=== PATIENT | female | born 1990 | race Caucasian/White ===

== ENCOUNTER 2022-07-06 16:02 | Outpatient (CLI) | payer OTHER, SELFPAY ==
[2022-07-06 23:40] LABS: Ferritin* 66.6 ng/mL (6.24-137.0)
== END 2022-07-06 16:03 | disposition home or self-care (01) ==
PROVIDERS: PCP Physician Assistant Medical; Visit Provider Physician Assistant Medical
DX: L65.9 Nonscarring hair loss, unspecified (principal)
CPT/HCPCS: 82728; 84443

== ENCOUNTER 2022-11-25 08:26 | Outpatient (CLI) | payer OTHER, SELFPAY ==
[2022-11-25 15:59] LABS: Albumin* 4.7 g/dL (3.3-5.0); Chloride* 104 mmol/L (96-114)
[2022-11-25 16:00] LABS: Sodium* 139 mmol/L (135-149)
[2022-11-25 16:02] LABS: Alkaline Phosphatase* 59 U/L (40-150); Aspartate Amino Transferase* 24 U/L (12-35); Blood Urea Nitrogen* 15 mg/dL (5-24); Carbon Dioxide* 26 mmol/L (20-32); Cholesterol* 201 mg/dL (90-199); Creatinine* 0.6 mg/dL (0.5-1.5); Estimated Glomerular Filt Rate 121 ml/min; Glucose* 95 mg/dL (60-115); Total Protein* 7.7 g/dL (6.0-8.3)
[2022-11-25 16:03] LABS: Alanine Aminotransferase* 21 U/L (4-35); Calcium* 9.5 mg/dL (8.4-10.6); HDL Cholesterol* 75 mg/dL (>=50); LDL Cholesterol Calculated 112 mg/dL (<100); Triglycerides* 72 mg/dL (40-149)
== END 2022-11-25 08:27 | disposition home or self-care (01) ==
PROVIDERS: PCP Physician Assistant Medical; Visit Provider Physician Assistant Medical
DX: Z00.00 Encounter for general adult medical examination without abnormal findings (principal); F41.9 Anxiety disorder, unspecified; Z13.6 Encounter for screening for cardiovascular disorders
CPT/HCPCS: 80053; 80061

== ENCOUNTER 2022-11-28 10:35 | Emergency (ER) | payer OTHER, SELFPAY ==
[2022-11-28 11:16] VITALS: BP 108/72; PULSE 85; RESP 18; TEMP 36.2; O2SAT 98; BMI 31.4
--- NOTE | 2022-11-28 14:13 | CRLHL7_ITS ---
For Patients: As a result of the Century Cures Act, medical imaging exams and procedure reports are released immediately into your electronic medical record. You may view this report before your referring provider. If you have questions, please contact your health care provider. HISTORY: Right pelvis/inguinal pain. TECHNIQUE: CT abdomen and pelvis without contrast. COMPARISON: CT abdomen pelvis 08/11/2020. FINDINGS: Abdomen: Liver, pancreas, spleen, and left adrenal gland are unremarkable. Right adrenal 2 cm right adrenal nodule with average density of -11 Hounsfield units consistent with a lipid rich adenoma. No urinary tract calculi. No hydronephrosis. No dilated bowel. Prominent diameter appendix without periappendiceal inflammatory change, unchanged. No free fluid. No lymphadenopathy. Abdominal aorta is not dilated. Pelvis: No lymphadenopathy. No inguinal or femoral hernia. Musculoskeletal: Unremarkable. Lower chest: Unremarkable. IMPRESSION: No acute abnormality in the abdomen or pelvis. Please note that all CT scans at this facility use dose modulation, iterative reconstruction, and/or weight-based dosing when appropriate to reduce radiation dose to as low as reasonably achievable. Dictated by Darnell Glass MD @ 11/28/2022 3:13:02 PM (Electronically Signed)
--- NOTE | 2022-11-28 14:15 | ED_ITS ---
HPI - Abdominal Pain General Chief Complaint: Abdominal Pain Stated Complaint: Pain from hernia, can't pee Time Seen by Provider: 11/28/22 14:03 History of Present Illness HPI narrative: 32-year-old woman presenting to the emergency department with complaint of fairly abrupt onset of right lower abdominal pain. Rather severe sharp. She is worried I think that might be an incarcerated hernia. She has had 2 C sections does have a history of ovarian cysts. The latter she says usually though do not stop hurting at rest. Was apparently coughing last night in developed this pain. If she is not moving or lying flat it is okay. Any ambulation inserting the ride over here was much worse. No fever. No vomiting. Might be bordering on constipation. Has been actually trying to urinate and have bowel movement and has been having difficulty. She did just manages small amount of urine out. Later on further questioning, notes that has been having dysuria for quite some time. She also notes a history of recurrent urinary tract infections. Related Data Previous Rx's Medication Instructions Recorded escitalopram oxalate 10 mg tablet 10 mg PO DAILY #90 tabs 11/25/22 lisdexamfetamine 50 mg capsule 50 mg PO QDAY #30 caps 11/25/22 (Vyvanse) metformin 500 mg tablet,extended 1,000 mg PO QDAY #60 tabs 11/25/22 release 24 hr Allergies Allergy/AdvReac Type Severity Reaction Status Date / Time lamotrigine Allergy Unknown Rash Verified 12/04/22 08:48 Review of Systems Status of ROS Reports: 6 or more systems reviewed and unremarkable except as noted in History and below [facility] Medical History (Updated 11/28/22 @ 15:40 by Rafiq Hanna MD) History of abnormal cervical Papanicolaou smear (2007) History of bronchitis (2014) History of recurrent urinary tract infection (2010) History of sinusitis (2014) Surgical History (Updated 11/18/22 @ 17:00 by Francheska Urena) History of colposcopy (2007) History of third molar tooth extraction Status post primary low transverse section Status post repeat low transverse section Social History Smoking Status: Never smoker How often do you have a drink containing alcohol: never How often do you have six or more drinks on one occasion: Never AUDIT-C Alcohol total score: 0 Non-prescribed substance use: denies use Little interest or pleasure in doing things: not at all Feeling down, depressed, or hopeless: not at all service: No Exam Narrative: Exam Narrative: Pleasant. Clearly quite uncomfortable. Not tachypneic but breathing mildly labored. Heart in regular rate and rhythm. Extremities well perfused without edema. Abdomen is exquisitely tender causing her to cry to palpate in the right inguinal low right pelvis/adnexal area. I do not appreciate wall defect. But frankly it is too tender really to tell. Soft. Pain is not isolated to hip flexors/insertion. Const: Vital Signs, click to edit/add: Vital Signs - 24 hr 11/28/22 11:16 Temperature 97.2 F L Pulse Rate [Right Pulse Oximeter] 85 Respiratory Rate 18 Blood Pressure [Ri ght Upper Arm] 108/72 Pulse Oximetry 98 Oxygen Delivery Me thod Room Air Documenting provider has reviewed patient's vital signs: yes Course Vital Signs Vital signs: Initial Vital Signs Temperature 97.2 F L 11/28/22 11:16 Temperature Source Temporal Artery Scan 11/28/22 11:16 Pulse Rate 85 11/28/22 11:16 Respiratory Rate 18 11/28/22 11:16 Blood Pressure 108/72 11/28/22 11:16 Blood Pressure Mean 84 11/28/22 11:16 Blood Pressure Position Sitting 11/28/22 11:16 Pulse Oximetry 98 11/28/22 11:16 Oxygen Delivery Method 11/28/22 11:16 Vital Signs Temperature 97.2 F L 11/28/22 11:16 Pulse Rate 85 11/28/22 11:16 Respiratory Rate 18 11/28/22 11:16 Blood Pressure 108/72 11/28/22 11:16 Pulse Oximetry 98 11/28/22 11:16 Oxygen Delivery Method 11/28/22 11:16 Temperature 97.2 F L 11/28/22 11:16 Pulse Rate 85 11/28/22 11:16 Respiratory Rate 18 11/28/22 11:16 Blood Pressure 108/72 11/28/22 11:16 Pulse Oximetry 98 11/28/22 11:16 Oxygen Delivery Method 11/28/22 11:16 MDM - Abdominal Pain MDM Narrative Medical decision making narrative: This may certainly be musculoskeletal wall tenderness but really hard to assess. I think given degree of discomfort we will have to image for further clarification. This also would answer her primary concern. Urinalysis as well as urine testing. Shot of Toradol as a start. Preferring not have IV ketorolac as above. CT imaging of the abdomen pelvis reviewed by me does not reveal any particular abnormality. Radiology also noting no acute abnormality. No hydronephrosis no nephrolithiasis. No abdominal wall defect/hernia. Perhaps is reticular/regional from what appears to be some degree of cystitis? Lab Data Attestation: I reviewed the patient's lab results. Labs: Lab Results 11/28/22 Range/Units 14:17 Urine Color Yellow (Yellow) Urine Appearance Clear (Clear) Urine pH 5.5 (5.0-8.5) Ur Specific [place] 1.020 (1.000-1.030) Urine Protein Negative (Negative) Urine Glucose (UA) Negative (Negative) Urine Ketones Negative (Negative) Urine Blood Trace-intact A (Negative) Urine Nitrite Negative (Negative) Urine Bilirubin Negative (Negative) Urine Urobilinogen 0.2 (0.2-1.0) Ur Leukocyte Esterase Negative (Negative) Urine RBC 5-10 A (0-2) Urine WBC 0-2 (0-5) Ur Squamous Epith Cells Few (None-Few) Urine Bacteria None (None) Discharge Plan Discharge Clinical Impression: Right inguinal pain, Cystitis Patient Disposition: Home w/ Parent or Adult Condition: Improved Additional Instructions: Focus on unsweetened/unsugared hydration aka water. Report fever, repeated vomiting, uncontrolled pain. Can take up to 800 mg of ibuprofen per dose or up to 1000 mg of acetaminophen per dose. Alternative to the ibuprofen might be up to 500 mg of naproxen 2 times daily. A urine culture will be pending here. Cephalexin and phenazopyridine from [facility]. If you think this lidocaine patches helpful, this can indicate more of a musculoskeletal problem and you can get lidocaine patches [id number]. Please also see handout on abdominal wall strain. Prescriptions: No Action metformin 500 mg tablet extended release 24 hr 1,000 mg PO QDAY Qty: 60 1RF escitalopram oxalate 10 mg tablet 10 mg PO DAILY Qty: 90 3RF Vyvanse 50 mg capsule 50 mg PO QDAY Qty: 30 0RF Follow Up/Referrals: Margarita Melo PA-C [Primary Care Provider] - Stand Alone Forms: ulike Info Instructions
[2022-11-28] MEDS: KETOROLAC 60 MG/2 ML inj IM (14:32)
[2022-11-28 14:45] LABS: Appearance Urine Clear (Clear); Bilirubin Urine Negative (Negative); Blood Urine Trace-intact (Negative); Color Urine Yellow (Yellow); Glucose Urine Negative (Negative); Ketones Urine Negative (Negative); Leukocyte Esterase Urine Negative (Negative); Nitrite Urine Negative (Negative); Protein Urine Negative (Negative); Urobilinogen Urine 0.2 (0.2-1.0); pH Urine 5.5 (5.0-8.5)
[2022-11-28 14:54] LABS: Squamous Epithelial Cell Urine Few (None-Few); WBC Urine 0-2 (0-5)
== END 2022-11-28 15:47 | disposition home or self-care (01) ==
PROVIDERS: Emergency Provider Family Medicine; PCP Physician Assistant Medical
DX: R10.31 Right lower quadrant pain (principal)
CPT/HCPCS: 74176; 81001; 96372; 99283; 99284; J1885

== ENCOUNTER 2023-03-26 08:04 | Outpatient (CLI) | payer OTHER, SELFPAY ==
--- NOTE | 2023-03-26 08:15 | CRLHL7_ITS ---
For Patients: As a result of the Century Cures Act, medical imaging exams and procedure reports are released immediately into your electronic medical record. You may view this report before your referring provider. If you have questions, please contact your health care provider. INDICATION: Ovarian mass seen on ultrasound. COMPARISON: Ultrasound dated 03/04/2023 and 11/28/2022. TECHNIQUE: MRI of the pelvis without and with contrast. 15 cc of Dotarem administered intravenously. FINDINGS: There is a right ovarian cyst measuring 2.8 x 2.4 cm. The left ovary looks unremarkable. A scar along the lower uterine segment is likely a scar. The urinary bladder appears unremarkable. Trivial free fluid in the pelvis. IMPRESSION: A right ovarian cyst is seen. Most likely the previously seen lesion was a hemorrhagic cyst. No hemorrhage within the cyst remaining at this point. Alternatively, this is a new follicular cyst. Dictated by Anjel Antunez MD @ 03/29/2023 7:17:13 AM (Electronically Signed)
== END 2023-03-26 08:05 | disposition home or self-care (01) ==
LOC: MRI 08:05
PROVIDERS: PCP Physician Assistant Medical; Visit Provider Physician Assistant Medical
DX: N83.201 Unspecified ovarian cyst, right side (principal)
CPT/HCPCS: 72197; A9575

== ENCOUNTER 2024-02-24 15:35 | Outpatient (CLI) | payer OTHER, SELFPAY ==
--- OUTSIDE RECORDS SUMMARY | 2024-02-24 15:38 | XMS_ITS | Clinical Summary ---
Author Organization [facility] Address [address] [place] [address] Care Team Providers Care Presser All Around Name Role Phone Roberta Neves APRN, INFECTION PREVENTIONIST Primary Care Provider Source Comments You are receiving this document as you are listed as the primary care provider,follow-up provider, or the patient has been referred to you for consultation.This is in compliance with the Medicare and[facility] EHR Incentive Program,which states Providers who transition their patient to another setting of careor provider of care or refers their patient to another provider of care shouldprovide summary care record for each transition of care or referral. [employer] [employer] Allergies No known active allergies Medications Medication Sig Dispensed Refills Start Date End Date Status Etonogestrel-Ethinyl Estradiol (NUVARING) 0.12-0.015 MG/24HR vaginal ringIndications:spott ing with OCPs Insert vaginally. Leave in for 3 weeks, then remove for one week, then repeat. Indications: spotting with OCPs 3 Each 4 03/31/2011 Active Additional Information Patient not taking.Reported on 11/18/2021 Etonogestrel-Ethinyl Estradiol (NUVARING) 0.12-0.015 MG/24HR vaginal ringIndications:Other general counseling and advice for contraceptive management Leave in for 3 weeks, then remove for one week, then repeat. 3 Each 4 05/30/2012 Active Additional Information Patient not taking.Reported on 11/18/2021 Etonogestrel-Ethinyl Estradiol (NUVARING VA) Place vaginally. 06/30/2011 Active guaiFENesin-codeine (ROBITUSSINAC) 100-10 MG/5ML solution Take 10 mLs by mouth every 4 hours as needed for Cough. 120 mL 0 11/30/2011 Active Additional Information Patient not taking.Reported on 11/18/2021 sodium fluoride (PREVIDENT) 1.1 % cream [place] 2x/day. Do not eat or drink for 30 minutes after. 51 g 6 02/06/2021 Active Additional Information Patient not taking.Reported on 11/18/2021 Active Problems Problem Noted Date Diagnosed Date Cervical high risk HPV (human papillomavirus) te st positive 07/17/2010 Papanicolaou smear of cervix with atypical squamous cells of undetermined significance (ASC-US) 07/17/2010 Overview: ASCUS on Pap smear Immunizations Name Administration Dates Next Due 4vHPV (Gardasil) 11/04/2010,06/24/2010, 0 Pfizer Monovalent 12+ Purple Top 10/14/2020,09/04 TB Skin Test (PPD) 11/19/2010,11/04/2010, 010 Td 10/15/2003 Tdap 11/04/2010 Family History Medical History Relation Name Comments Cancer, Breast Mother diagnosed at 45- in remission Cancer, Ovary Maternal Grandmother Relation Name Status Comments Father Alive Mother Alive hx breast cance r Brother Alive Maternal Grandmother Social History Tobacco Use Types Packs/Day Years Used Date Smoking Tobacco: Never Smokeless Tobacco: Never Alcohol Use Standard Drinks/Week Comments Not Currently 0 (1 standard drink = 0.6 oz pur e alcohol) Weekends about 8 drinks Sex and Gender Information Value Date Recorded Sex Assigned at Not on file Gender Identity Not on file Sexual Orientation Not on file Last Filed Vital Signs Vital Sign Reading Time Taken Comments Blood Pressure 110/62 05/30/2012 2:37 PM CDT Pulse 84 02/06/2021 4:06 PM CDT Temperature 36.8 ??C (98.2 ??F) 11/30/2011 2:08 PM CS T Respiratory Rate 20 11/30/2011 2:08 PM STRIPPER AND PRINTER Oxygen Saturation 98% 11/30/2011 2:08 PM STRIPPER AND PRINTER Inhaled Oxygen Concentration - - Weight 68.5 kg (151 lb) 05/30/2012 2:37 PM CDT Height 162.6 cm (5' 4) 05/30/2012 2:37 PM CDT Body Mass Index 25.92 05/30/2012 2:37 PM CDT Plan of Treatment Health Maintenance Due Date Last Done Comments Hep C Screening (Preventive Services) 1988 HIV Screening (Preventive Services) 2004 HepB (1) 2007 Cervical Cancer Screening Due 05/31/2012 05/30/2012, 02/02/2011, 08/05/2010, Additional history exists Adult Preventive Visit 05/30/2014 05/30/2012, 2009 COVID-19 Vaccine ( season) 2023 10/14/2020, 09/23/2020 Influenza (Season Ended) 2024 020, 08/02/2019, 07/04/2018, Additional history exists DTaP/Tdap/Td (5 - Tdap) 02/19/2030 02/20/20 20, 06/28/2017, 11/04/2010, Additional history exists Zoster/Shingles (1 of 2) 2038 HPV Vaccine Completed 11/04/2010, 06/05, 04/29/2010 HepA Aged Out No longer eligi ble based on patient's age to complete this topic Hib Aged Out No longer eligi ble based on patient's age to complete this topic IPV (Polio) Aged Out No longer eligi ble based on patient's age to complete this topic MCV4 Aged Out No longer eligi ble based on patient's age to complete this topic Pneumococcal Aged Out No longer eligi ble based on patient's age to complete this topic Procedures Procedure Name Priority Date/Time Associated Diagnosis Comments PAP TEST, ROUTINE Routine 05/30/2012 12: 00 AM CDT Screening for malignant neoplasm of the cervix from Last 3 Months or Most Recently Relevant to Health Maintenance Results * PAP TEST, ROUTINE (05/30/2012 12:00 AM CDT) Cytology, Pap (NOTE) Cash Applications Specialist Cytology Report Patient Name: VERONICA ZUNIGA Valdo Taken: 05/30/2012 Received: 05/31/2012 Reported: 06/17/2012 Physician(s): KAYLEEN VALENTINO ([id number]) ?Source of Specimen Liquid routine Pap, cervical/endocer vical: ?Specimen Adequacy ?Satisfactory for evaluation. ??Endocervical component present. ? Final Cytologic Interpretation/R esult EPITHELIAL CELL ABNORMALITIES Atypical squamous cells, undetermined significance (ASC-US). Human Papilloma Virus Ancillary Testing Specimen sent for HPV testing as requested by provider; separate report to follow Electronicall y Signed Out By ? Tonya Carmona MD ??([id number] ) LIZETH Reece (ASCP) ? Pap Smear History Date of Last Menstrual Period: 05/02/2012 ?? Microscopic Description Microscopic examination is performed. [facility] Department of Pathology [address] [place] [address] ??[id number] [facility] 05/30/2012 05/31/2012 12: 17 PM CDT Kayleen Valentino MANAGER LINE, INFECTION PREVENTIONIST LAB_1 Performing Organization Address City/State/[facility] Co de Phone Number [employer] [address] [phone] from Last 3 Months or Most Recently Relevant to Health Maintenance Care Teams Presser All Around Relationship Specialty Start Date End Date Roberta Neves APRN, INFECTION PREVENTIONIST [address] [place] [address] PCP - General Family Practice 05/20/12
--- OUTSIDE RECORDS SUMMARY | 2024-02-24 15:38 | XMS_ITS | Clinical Summary ---
Author Organization [employer] [facility] Address [place], [place] [address] Care Team Providers Care Painter Drum Name Role Phone Margarita Melo PA-C Primary Care Provider [phone] Allergies Active Allergy Reactions Criticality Noted Date Comments Lamotrigine Rash 06/06/2014 Not clear if viral or drug related rash Medications Medication Sig Dispensed Refills Start Date End Date Status Ozempic 0.25 mg or 0.5 mg (2 mg/3 mL) pen INJECT 0.5 MG SUBCUTANEOUSLY EVERY WEEK ONCE WEEKLY FOR WT MANAGEMENT 02/18/2023 Active Vyvanse 50 mg capsule 05/13/2023 Active Active Problems Problem Noted Date Diagnosed Date Primigravida in first trimester 01/05/2017 Rubella non-immune status, antepartum 01/05/2017 Generalized anxiety disorder 02/03/2013 Encounters Date Type Department Care Team Description 01/03/2024 Telephone [facility] [address] [place] [address] Rhiannon Delacruz Cancer Genetics from Last 3 Months Immunizations Name Administration Dates Next Due Human Papilloma Virus Vaccine 11/04/2010, 010,04/29/2010 Influenza, IIV3 (Age >=3 years) 07/28/2013 Tdap 11/04/2010 Family History Medical History Relation Name Comments Cancer-ovarian Maternal Grandmother 60s Cancer-breast Mother 40s Relation Name Status Comments Brother Alive Father Alive Maternal Grandmother Mother Alive Social History Tobacco Use Types Packs/Day Years Used Date Smoking Tobacco: Never Smokeless Tobacco: Never Tobacco Cessation:Counseling Given: No Alcohol Use Standard Drinks/Week Comments Yes 0 (1 standard drink = 0.6 oz pur e alcohol) Social Sex and Gender Information Value Date Recorded Sex Assigned at Not on file Gender Identity Not on file Sexual Orientation Not on file Obstetrics History Para Term AB IAB SAB Ectopic Multiple Livin g Live Births 1 Date Outcome GA Total Labor Labor/2nd/3rd Weight Sex Delivery Anes PTL Jenny A1 A5 Name Cl in Last Filed Vital Signs Vital Sign Reading Time Taken Comments Blood Pressure 138/95 06/02/2023 12:25 PM CDT Pulse 93 06/02/2023 12:25 PM CDT Temperature 36.3 ??C (97.4 ??F) 06/02/2023 12:25 PM C DT Respiratory Rate 12 06/02/2023 12:25 PM CDT Oxygen Saturation 100% 06/02/2023 12:25 PM CDT Inhaled Oxygen Concentration - - Weight 68 kg (150 lb) 06/02/2023 12:25 PM CDT Height 162.6 cm (5' 4) 06/02/2023 12:25 PM CDT Body Mass Index 25.75 06/02/2023 12:25 PM CDT Plan of Treatment Health Maintenance Due Date Last Done Comments Hepatitis C screening for age 18-79 2006 Depression screening for age 12+ 02/17/2018 02/17/2017 BMI (ht and wt on same day) for age 18+ 04/10/2018 04/10/2017, 02/17/2017 Tetanus booster 11/04/2020 11/04/2010 (Comp leted outside of [facility]), 11/04/2010 COVID-19 vaccine series ( season) 2023 09/08/2021, 10/14/2020, 09/23/2020 Influenza for age 9-49 06/04/2024 07/28/2013 Pap test for age 21-65 11/25/2025 , 11/25/2022, 10/11/2017, Additional history exists Tdap Completed 11/04/2010 HIV for age 15-65 Completed 01/04/2017 Pneumococcal series for age 6-64 Aged Out No longer eligible based on patient's age to complete this topic Procedures Procedure Name Priority Date/Time Associated Diagnosis Comments HPV THIN PREP Routine 11/25/2022 8:30 AM COIN MACHINE COLLECTOR SUPERVISOR ANTI HIV 1/2 Routine 01/04/2017 3:09 PM CDT First , unspecified trimester from Last 3 Months or Most Recently Relevant to Health Maintenance Results * HPV HIGH RISK (11/25/2022 8:30 AM COIN MACHINE COLLECTOR SUPERVISOR) TYPE 16 Negative Negative 12/02/2022 11:02 AM COIN MACHINE COLLECTOR SUPERVISOR [facility] TYPE 18 Negative Negative 12/02/2022 11:02 AM COIN MACHINE COLLECTOR SUPERVISOR [facility] OTHER HIGH RISK TYPES Negative Negative 12/02/2022 11:02 AM COIN MACHINE COLLECTOR SUPERVISOR [facility] Other (Cervical/Vagina l) 11/25/2022 8:30 AM COIN MACHINE COLLECTOR SUPERVISOR 11/25/2022 4:49 PM COIN MACHINE COLLECTOR SUPERVISOR Narrative [facility] - 12/02/2022 11:02 AM COIN MACHINE COLLECTOR SUPERVISOR HPV types 16, 18, 31, 33, 35, 39, 45, 51, 52, 56, 58, 59, 66 and 68 DNA were undetectable or below the pre-set threshold. Methodology: Aditya Sonia 4800 HPV Test Margarita Melo PA-C MICROBIOLOGY Performing Organization Address City/State/[facility] Co de Phone Number [facility] [address] [place] [address], * ANTI HIV 1/2 (01/04/2017 3:09 PM CDT) HIV-1/HIV-2 ANTIBODY Non-Reacti ve Non-Reacti ve 01/04/2017 8:18 PM CDT [facility] Blood BLOOD SPECIMEN / Unknown Venipuncture / Unknown 01/04/2017 3:09 PM CDT 01/04/2017 3:09 PM CDT Narrative [facility] - 01/04/2017 8:18 PM CDT HIV-1 p24 and HIV-1/HIV-2 Ab not detected Zaira Hoover PLUG OVERWRAP MACHINE TENDER SEND OUTS [facility] [address] [place] [address], [place] from Last 3 Months or Most Recently Relevant to Health Maintenance Advance Directives * Full Code (Latest Code Status on File) Date Activated Date Inactivated Comments 04/10/2017 11:26 AM 04/10/2017 3:33 PM Care Teams Painter Drum Relationship Specialty Start Date End Date Margarita Melo PA-C [address] [place] [address] PCP - General Emergency Medicine 06/02/23
--- OUTSIDE RECORDS SUMMARY | 2024-02-24 15:38 | XMS_ITS | Encounter Summary ---
Author Organization [facility] Address [address] [place] [address] Care Team Providers Care Claims Adjuster Supervisor Name Role Phone Roberta Neves APRN, CNP Primary Care Provider Encounter Details Date Type Department Care Team (Late st Contact Info) Description 02/22/2012 Correspondence [facility] [address] [place] [phone] Roberta Neves APRN, CNP [address] [place], [place] [address] PHYSICIANS STATEMENT Social History Tobacco Use Types Packs/Day Years Used Date Smoking Tobacco: Never Smokeless Tobacco: Never Alcohol Use Standard Drinks/Week Comments Yes 0 (1 standard drink = 0.6 oz pur e alcohol) Weekends about 8 drinks Sex and Gender Information Value Date Recorded Sex Assigned at Not on file Gender Identity Not on file Sexual Orientation Not on file documented as of this encounter Progress Notes * Roberta Neves APRN, CNP - 02/22/2012 12:00 AM CDT documented in this encounter Plan of Treatment Not on file documented as of this encounter Visit Diagnoses Not on filedocumented in this encounter Care Teams Claims Adjuster Supervisor Relationship Specialty Start Date End Date Roberta Neves APRN, CNP [address] [id number] PCP - General Family Practice 05/20/12 documented as of this encounter
== END 2024-02-24 15:36 | disposition home or self-care (01) ==
PROVIDERS: PCP Physician Assistant Medical; Visit Provider Physician Assistant Medical
DX: R53.83 Other fatigue (principal)
CPT/HCPCS: 80053; 82306; 82728; 84443; 87086

== ENCOUNTER 2024-05-08 08:46 | Outpatient (CLI) | payer BC, SELFPAY ==
--- OUTSIDE RECORDS SUMMARY | 2024-05-08 08:48 | XMS_ITS | Clinical Summary ---
Author Organization [facility] Address [place], [place] [address] Care Team Providers Care Bearing Machine Operator Name Role Phone Margarita Melo PA-C Primary Care Provider + [phone] Allergies Active Allergy Reactions Criticality Noted Date [...] status, antepartum 01/05/2017 Generalized anxiety disorder 02/03/2013 Immunizations Name Administration Dates Next Due Human [...] Outcome GA Total Labor Labor/2nd/3rd Weight Sex Type Anes PTL Jenny A1 A5 Name Clin Last Filed Vital Signs Vital Sign Reading [...] HPV THIN PREP Routine 11/25/2022 8:30 AM RETORT FIRER ANTI HIV 1/2 Routine 01/04/2017 3:09 PM CDT First , unspecified trimester from Last 3 Months or Most Recently Relevant to Health Maintenance Results * HPV HIGH RISK (11/25/2022 8:30 AM RETORT FIRER) TYPE 16 Negative Negative 12/02/2022 11:02 AM RETORT FIRER [facility] TYPE 18 Negative Negative 12/02/2022 11:02 AM RETORT FIRER [facility] TRAL [facility] OTHER HIGH RISK TYPES Negative Negative 12/02/2022 11:02 AM RETORT FIRER [facility] TRA LABORATORY Other (Cervical/Vagina l) 11/25/2022 8:30 AM RETORT FIRER 11/25/2022 4:49 PM RETORT FIRER Narrative [facility] - 12/02/2022 11:02 AM RETORT FIRER HPV types 16, 18, 31, 33, 35, 39, 45, 51, 52, 56, 58, 59, 66 and 68 DNA were undetectable or below the pre-set threshold. Methodology: Aditya Sonia 4800 HPV Test Margarita Melo PA-C MICROBIOLOGY [facility] [address] [place] [address], [place] * ANTI HIV 1/2 (01/04/2017 3:09 PM CDT) HIV-1/HIV-2 ANTIBODY Non-Reacti ve Non-Reacti ve 01/04/2017 8:18 PM CDT [facility] Blood BLOOD SPECIMEN / Unknown Venipuncture / Unknown 01/04/2017 3:09 PM CDT 01/04/2017 3:09 PM CDT Narrative [facility] - 01/04/2017 8:18 PM CDT HIV-1 p24 and HIV-1/HIV-2 Ab not detected Zaira Hoover LEATHER PRODUCTION MACHINE OPERATOR SEND OUTS [facility] [address] [place] [address], [place] from Last 3 Months or Most Recently Relevant to Health Maintenance Advance Directives * Full Code (Latest Code Status on File) Date Activated Date Inactivated Comments 04/10/2017 11:26 AM 04/10/2017 3:33 PM Care Teams Bearing Machine Operator Relationship Specialty Start Date End Date Margarita Melo PA-C [address] [place] [address] PCP - General Emergency Medicine 06/02/23
--- OUTSIDE RECORDS SUMMARY | 2024-05-08 08:48 | XMS_ITS | Clinical Summary ---
Author Organization [facility] Address [address] [place] [address] Care Team Providers Care Warranty Manager Name Role Phone Roberta Neves APRN, END MAKER Primary Care Provider Source Comments You are receiving this document as you are listed as the primary care provider,follow-up provider, or the patient has been referred to you for consultation.This is in compliance with the Medicare and[facility] Hospitalca[facility] EHR Incentive Program,which states Providers who transition their patient to another setting of careor provider of care or refers their patient to another provider of care shouldprovide summary care record for each transition of care or referral. [facility] Allergies No known active allergies Medications Medication [...] 11/18/2021 sodium fluoride (PREVIDENT) 1.1 % cream [place] 2x/day. Do not eat or drink for [...] T Respiratory Rate 20 11/30/2011 2:08 PM FIREARMS INSPECTOR Oxygen Saturation 98% 11/30/2011 2:08 PM FIREARMS INSPECTOR Inhaled Oxygen Concentration - - Weight 68.5 [...] Vaccine ( season) 2023 10/14/2020, 09/23/2020 Influenza (#1) 2024 07/27/2020, 07/06, 07/04/2018, Additional history exists DTaP/Tdap/Td (5 - Tdap) 02/19/2030 02/20/20, 06/28/2017, 11/04/2010, Additional history exists Zoster/Shingles (1 [...] (05/30/2012 12:00 AM CDT) Cytology, Pap (NOTE) [employer] History Teacher Cytology Report Patient Name: VERONICA ZUNIGA Valdo Taken: 05/30/2012 Received: 05/31/2012 Reported: 06/17/2012 Physician(s): KAYLEEN VALENTINO ([id number]) ?Source of Specimen Liquid routine Pap, cervical/endocer vical: ?Specimen Adequacy ?Satisfactory for evaluation. ??Endocervical component present. ? Final Cytologic Interpretation/R esult EPITHELIAL CELL ABNORMALITIES Atypical squamous cells, undetermined significance (ASC-US). Human Papilloma Virus Ancillary Testing Specimen sent for HPV testing as requested by provider; separate report to follow Electronicall y Signed Out By ? Tonya Carmona MD ??([id number] ) LIZETH Reece (ASCP) ? Pap Smear History Date of Last Menstrual Period: 05/02/2012 ?? Microscopic Description Microscopic examination is performed. [facility] Department of Pathology [address] [place] [address] ??[id number] [facility] Auto 05/30/2012 05/31/2012 12: 17 PM CDT Kayleen Valentino PATIENT FINANCIAL REPRESENTATIVE, END MAKER LAB_1 Performing Organization Address City/State/[facility] Co de Phone Number [employer] [address] [phone] from Last 3 Months or Most Recently Relevant to Health Maintenance Care Teams Warranty Manager Relationship Specialty Start Date End Date Roberta Neves APRN, END MAKER [address] [place] [address] [place] [address] PCP - General Family Practice 05/20/12
--- OUTSIDE RECORDS SUMMARY | 2024-05-08 08:48 | XMS_ITS | Encounter Summary ---
Author Organization [facility] Address [address] [place] [address] Care Team Providers Care Master Cook Name Role Phone Roberta Neves APRN, CNP Primary Care Provider Encounter Details Date Type Department Care Team (Late st Contact Info) Description 02/22/2012 Correspondence [facility] [address] [place] [phone] Roberta Neves APRN, CNP [address] [place], [place] [phone] PHYSICIANS STATEMENT Social History Tobacco Use Types [...] on filedocumented in this encounter Care Teams Master Cook Relationship Specialty Start Date End Date Roberta Neves APRN, CNP [address] [place] [address] [place] [address] PCP - General Family Practice 05/20/12 documented as of this encounter
[2024-05-08 15:54] LABS: Chlamydia DNA Amplified* NOT DETECTED (No Detected); GC DNA Amplified* NOT DETECTED (No Detected)
== END 2024-05-08 08:47 | disposition home or self-care (01) ==
PROVIDERS: PCP Physician Assistant Medical; Visit Provider Physician Assistant Medical
DX: Z00.00 Encounter for general adult medical examination without abnormal findings (principal); R53.83 Other fatigue; R33.9 Retention of urine, unspecified
CPT/HCPCS: 87491; 87591

== ENCOUNTER 2024-07-18 15:15 | Outpatient (CLI) | payer BC, SELFPAY ==
--- OUTSIDE RECORDS SUMMARY | 2024-07-19 08:45 | XMS_ITS | Encounter Summary ---
Author Organization [facility] Address [address] [place] [address] Care Team Providers Care Territory Outside Sales Manager Name Role Phone Roberta Neves APRN, CNP Primary Care Provider Encounter Details Date Type Department Care Team (Late st Contact Info) Description 02/22/2012 Correspondence [facility] [address] [place] [phone] Roberta Neves APRN, CNP [address] [place], [place] [phone] PHYSICIANS STATEMENT Social History Tobacco Use Types [...] on filedocumented in this encounter Care Teams Territory Outside Sales Manager Relationship Specialty Start Date End Date Roberta Neves APRN, CNP [address] [place] [address] [address] PCP - General Family Practice 05/20/12 documented as of this encounter
--- OUTSIDE RECORDS SUMMARY | 2024-07-19 08:45 | XMS_ITS | Clinical Summary ---
Author Organization [facility] Address [address] [place] [address] Care Team Providers Care Performance Solutions Specialist Name Role Phone Roberta Neves APRN, WORK ORDER CLERK Primary Care Provider Source Comments You are receiving this document as you are listed as the primary care provider,follow-up provider, or the patient has been referred to you for consultation.This is in compliance with the Medicare and[facility] Cent[facility]aid EHR Incentive Program,which states Providers who transition their patient to another setting of careor provider of care or refers their patient to another provider of care shouldprovide summary care record for each transition of care or referral. [facility] Allergies No known active allergies Medications Medication [...] 11/18/2021 sodium fluoride (PREVIDENT) 1.1 % cream [place] 2x/day. Do not eat or drink for 30 minutes after. 51 g 6 02/06/2021 Active Additional Information Patient not taking.Reported on 11/18/2021 Active Problems Problem Noted Date Diagnosed Date Cervical high risk HPV (human papillomavirus) te st positive 07/17/2010 Papanicolaou smear of cervix with atypical squamous cells of undetermined significance (ASC-US) 07/17/2010 Overview (05/26/2017): ASCUS on Pap smear Immunizations Name Administration [...] T Respiratory Rate 20 11/30/2011 2:08 PM DERRICK HELPER Oxygen Saturation 98% 11/30/2011 2:08 PM DERRICK HELPER Inhaled Oxygen Concentration - - Weight 68.5 [...] 05/30/2014 05/30/2012, 2009 COVID-19 Vaccine ( season) 2024 10/14/2020, 09/23/2020 Influenza (#1) 2024 07/27/2020, 07/06, [...] on patient's age to complete this topic RSV Aged Out No longer eligi ble based [...] (05/30/2012 12:00 AM CDT) Cytology, Pap (NOTE) Stemhole Borer Cytology Report Patient Name: VERONICA ZUNIGA Taken: 05/30/2012 Received: 05/31/2012 Reported: 06/17/2012 Physician(s): KAYLEEN VALENTINO ([id number]) ?Source of Specimen Liquid routine Pap, cervical/endocer vical: ?Specimen Adequacy ?Satisfactory for evaluation. ??Endocervical component present. ? Final Cytologic Interpretation/R esult EPITHELIAL CELL ABNORMALITIES Atypical squamous cells, undetermined significance (ASC-US). Human Papilloma Virus Ancillary Testing Specimen sent for HPV testing as requested by provider; separate report to follow Electronicall y Signed Out By ? Tonya Carmona MD ??([id number] ) LIZETH Reece (ASCP) ? Pap Smear History Date of Last Menstrual Period: 05/02/2012 ?? Microscopic Description Microscopic examination is performed. [facility] Department of Pathology [address] [place] [address] ??[phone] [employer] by ProSent MobileNEW MEXICO REHABILITATION CENTERYellow Chip 05/30/2012 05/31/2012 12: 17 PM CDT Kayleen Valentino OPERATIONS ASST, WORK ORDER CLERK LAB_1 Performing Organization Address [facility]/State/[facility] Co de Phone Number [employer] [address] [place] [phone] from Last 3 Months or Most Recently Relevant to Health Maintenance Care Teams Performance Solutions Specialist Relationship Specialty Start Date End Date Roberta Neves APRN, WORK ORDER CLERK [address] [place] [address] PCP - General Family Practice 05/20/12
--- OUTSIDE RECORDS SUMMARY | 2024-07-19 08:45 | XMS_ITS | Clinical Summary ---
Author Organization [facility] [email or web address] [facility] Address [place], [place] [address] Care Team Providers Care Airfreight Loading Supervisor Name Role Phone Margarita Melo PA-C Primary Care Provider [phone] Allergies Active Allergy Reactions Criticality Noted Date [...] Encounters Date Type Department Care Team Description 07/18/2024 7:25 AM CDT Telemedicine [facility] [address] [place] [address] Viji Hunt, CONTRACTS SPECIALIST Sleep Consult; Telehealth (no vitals taken/) 07/17/2024 Travel 06/19/2024 Orders Only [facility] [address] [place] [address] Ines Lopez 1 scan: (1-Ord) Rk Report 05/12/2024 Transcribe Orders [facility] [address] [place] [address] Margarita Melo PA-C 05/09/2024 Transcribe Orders [facility] [address] [place] [address] Margarita Melo PA-C 05/08/2024 Lab Requisition [facility] [phone] Margarita Melo PA-C from Last 3 Months Immunizations Name Administration [...] outside of [facility]), 11/04/2010 COVID-19 vaccine series (2023- season) 2024 09/08/2021, 10/14/2020, 09/23/2020 Influenza for age 9-49 06/04/2024 07/28/2013 Pap test for age 21-65 05/08/2027 , 05/08/2024, 11/25/2022, Additional history exists Tdap Completed 11/04/2010 HIV for age 15-65 Completed 01/04/2017 Pneumococcal series for age 6-64 Aged Out No longer eligible based on patient's age to complete this topic Procedures Procedure Name Priority Date/Time Associated Diagnosis Comments EXTENDED HOLTER Routine 06/19/2024 Palpitations LAB TRACKING EVENT Routine 05/08/2024 9: 00 AM CDT PHOTOGRAPHIC PROCESS WORKER THIN PREP PAP SCREEN IMAGED Routine 05/08/2024 9:00 AM CDT HPV HIGH RISK Routine 05/08/2024 9:00 AM CDT ANTI HIV 1/2 Routine 01/04/2017 3:09 PM CDT First , unspecified trimester from Last 3 Months or Most Recently Relevant to Health Maintenance Results * EXTENDED HOLTER (06/19/2024) Margarita Melo PA-C CARDIAC SERVICES ORD * LAB TRACKING EVENT (05/08/2024 9:00 AM CDT) Other (Other) Client Collect / Unknown 05/08/2024 9:00 AM CDT 05/08/2024 3:50 PM CDT Margarita Melo PA-C LAB BILL ONLY [facility] [address] [place] [address], [place] * (ABNORMAL) PHOTOGRAPHIC PROCESS WORKER THIN PREP PAP SCREEN IMAGED (05/08/2024 9:00 AM CDT) Case Report Gynecologic Cytology Report ? Case: [id number] ? Authorizing Provider: ??Margarita Melo PA-C ?Collected: ? 05/08/2024 0900 ? Ordering Location: ? [facility] ?Received: ?05/09/2024 1311 ? First Screen: ?Leelee, Alexander ? Pathologist: ? Fabrizio Bond Jr., ? MD ? Specimen: ?PHOTOGRAPHIC PROCESS WORKER ThinPrep Vial Screening, Cervical ? 05/18/2024 4:46 PM CDT [facility] INTERPRETATION/ RESULT LOW GRADE SQUAMOUS INTRAEPITHELIAL LESION (LSIL)(A) (none) 05/18/2024 4:46 PM CDT [facility] IMEN ADEQUACY Satisfactory for evaluation Endocervical component present 05/18/2024 4:46 PM CDT [facility] HPV REQUEST HPV and PAP 05/18/2024 4:46 PM CDT [facility] Date of LMP 04/16/2024 05/18/2024 4:46 PM CDT [facility] Last Pap Date 11/25/2022 05/18/2024 4:46 PM CDT [facility] Last Pap Result LSIL 4:46 PM CDT [facility] Additional Information 05/18/2024 4:46 PM CDT [facility] Comment: Interpreted at [facility], Central Laboratory - [address] [place] [address] S. [facility] [address], [place] [address] Automated Review Successful 05/18/2024 4:46 PM CDT [facility] Comment:Specimen processed s uccessfully by automated welding equipment repairer device, ThinPrep Imaging System, [employer] ANCILLARY TESTING PHOTOGRAPHIC PROCESS WORKER HPV Ordered, Please see separate report 05/18/2024 4:46 PM CDT [facility] Note The pap test is a screening technique, not a diagnostic procedure. It is used primarily to screen for squamous cancers and precursor lesions. Published studies have shown that it is subject to both false negative and false positive results. The pap test should not be used as the sole means to diagnose or exclude pre-malignant and malignant lesions. 05/18/2024 4:46 PM CDT [facility] Other (Cervical) 05/08/2024 9:00 AM CDT 05/09/2024 1:11 PM CDT Margarita Melo PA-C PATHOLOGY/CYTOLOGY [facility] [address] [place] [address], * HPV HIGH RISK (05/08/2024 9:00 AM CDT) TYPE 16 Negative Negative 05/10/2024 4:20 PM CDT [facility] TYPE 18 Negative Negative 05/10/2024 4:20 PM CDT [facility] OTHER HIGH RISK TYPES Negative Negative 05/10/2024 4:20 PM CDT [facility] Other (Cervical) 05/08/2024 9:00 AM CDT 05/09/2024 1:11 PM CDT Narrative [facility] - 05/10/2024 4:20 PM CDT HPV types 16, 18, 31, 33, 35, 39, 45, 51, 52, 56, 58, 59, 66 and 68 DNA were undetectable or below the pre-set threshold. Methodology: Aditya Sonia 4800 HPV Test Margarita Melo PA-C MICROBIOLOGY Performing Organization Address City/[facility]/ZIP Co de Phone Number [facility] [address] [place] [address], * ANTI HIV 1/2 (01/04/2017 3:09 PM CDT) HIV-1/HIV-2 ANTIBODY Non-Reacti ve Non-Reacti ve 01/04/2017 8:18 PM CDT [facility] TRA [facility] Blood BLOOD SPECIMEN / Unknown Venipuncture / Unknown 01/04/2017 3:09 PM CDT 01/04/2017 3:09 PM CDT Narrative [facility] - 01/04/2017 8:18 PM CDT HIV-1 p24 and HIV-1/HIV-2 Ab not detected Zaira Hoover CONTRACTS SPECIALIST SEND OUTS [facility] [address] [place] [address], from Last 3 Months or Most Recently Relevant to Health Maintenance Advance Directives * Full Code (Latest Code Status on File) Date Activated Date Inactivated Comments 04/10/2017 11:26 AM 04/10/2017 3:33 PM Care Teams Airfreight Loading Supervisor Relationship Specialty Start Date End Date Margarita Melo PA-C [address] [place] [address] PCP - General Emergency Medicine 06/02/23
== END 2024-07-18 15:16 | disposition home or self-care (01) ==
LOC: NFLDREF 07-19 08:42
PROVIDERS: PCP Physician Assistant Medical; Referring Provider Physician Assistant Medical; Visit Provider Physician Assistant Medical
DX: R53.83 Other fatigue (principal)
CPT/HCPCS: 82607

== ENCOUNTER 2024-07-27 11:27 | Outpatient (CLI) | payer BC, SELFPAY ==
--- OUTSIDE RECORDS SUMMARY | 2024-07-27 11:32 | XMS_ITS | Encounter Summary ---
Author Organization [facility] Address [address] [place] [address] Care Team Providers Care Patch Setter Name Role Phone Roberta Neves APRN, CNP Primary Care Provider Encounter Details Date Type Department Care Team (Late st Contact Info) Description 02/22/2012 Correspondence [facility] [address] [place] [phone] Roberta Neves APRN, CNP [address] [place], [place] [address] PHYSICIANS STATEMENT Social History Tobacco Use Types [...] on filedocumented in this encounter Care Teams Patch Setter Relationship Specialty Start Date End Date Roberta Neves APRN, CNP [address] [place] [address] [place] [address] PCP - General Family Practice 05/20/12 documented as of this encounter
--- OUTSIDE RECORDS SUMMARY | 2024-07-27 11:32 | XMS_ITS | Clinical Summary ---
Author Organization [facility] Address [address] [place] [address] Care Team Providers Care Windshield Repair Technician Name Role Phone Roberta Neves APRN, DENTAL TECHNOLOGY ADVISOR Primary Care Provider Source Comments You are receiving this document as you are listed as the primary care provider,follow-up provider, or the patient has been referred to you for consultation.This is in compliance with the Medicare and[facility] Centercaid EHR Incentive Program,which states Providers who transition their patient to another setting of careor provider of care or refers their patient to another provider of care shouldprovide summary care record for each transition of care or referral. [facility] Allergies No known active allergies Medications Medication [...] 11/18/2021 sodium fluoride (PREVIDENT) 1.1 % cream [place] 2x/day. Do not eat or drink for [...] T Respiratory Rate 20 11/30/2011 2:08 PM BUCKLE SORTER Oxygen Saturation 98% 11/30/2011 2:08 PM BUCKLE SORTER Inhaled Oxygen Concentration - - Weight 68.5 [...] (05/30/2012 12:00 AM CDT) Cytology, Pap (NOTE) Knockdown Worker Cytology Report Patient Name: VERONICA ZUNIGA Taken: 05/30/2012 Received: 05/31/2012 Reported: 06/17/2012 Physician(s): KAYLEEN VALENTINO ([id number]) ?Source of Specimen Liquid routine Pap, cervical/endocer vical: ?Specimen Adequacy ?Satisfactory for evaluation. ??Endocervical component present. ? Final Cytologic Interpretation/R esult EPITHELIAL CELL ABNORMALITIES Atypical squamous cells, undetermined significance (ASC-US). Human Papilloma Virus Ancillary Testing Specimen sent for HPV testing as requested by provider; separate report to follow Electronicall y Signed Out By ? Tonya Carmona MD ??([id number] ) LIZETH Reece (ASCP) ? Pap Smear History Date of Last Menstrual Period: 05/02/2012 ?? Microscopic Description Microscopic examination is performed. [facility] Department of Pathology [address] [place] [address] ??[phone] [facility]ecterCIBOLA GENERAL HOSPITALAppetite+ 05/30/2012 05/31/2012 12: 17 PM CDT Kayleen Valentino COLLECTION ANALYST, DENTAL TECHNOLOGY ADVISOR LAB_1 Performing Organization Address [facility]/State/[facility] Co de Phone Number [employer] [address] [place] [phone] from Last 3 Months or Most Recently Relevant to Health Maintenance Care Teams Windshield Repair Technician Relationship Specialty Start Date End Date Roberta Neves APRN, DENTAL TECHNOLOGY ADVISOR [address] [place] [address] PCP - General Family Practice 05/20/12
--- OUTSIDE RECORDS SUMMARY | 2024-07-27 11:32 | XMS_ITS | Clinical Summary ---
Author Organization [facility] Address [place], [place] [address] Care Team Providers Care Necktie Turner Name Role Phone Margarita Melo PA-C Primary Care Provider [phone] Allergies Active Allergy Reactions Criticality Noted Date [...] Encounters Date Type Department Care Team Description 07/17/2024 Travel 06/19/2024 Orders Only [facility] [address] [place] [address] Ines Lopez 1 scan: (1-Ord) Zio Report 05/12/2024 Transcribe Orders [facility] [address] [place] [address] Margarita Melo PA-C 05/09/2024 Transcribe Orders [facility] [address] [place] [address] Margarita Melo PA-C 05/08/2024 Lab Requisition [facility] [phone] Margarita Melo PA-C from Last 3 Months [...] [facility]), 11/04/2010 COVID-19 vaccine series ( season) 2024 09/08/2021, 10/14/2020, 09/23/2020 Influenza for [...] EVENT Routine 05/08/2024 9: 00 AM CDT EXPORT FREIGHT CLERK THIN PREP PAP SCREEN IMAGED Routine 05/08/2024 [...] CDT Margarita Melo PA-C LAB BILL ONLY [facility] [address] [place] [address], * (ABNORMAL) EXPORT FREIGHT CLERK THIN PREP PAP SCREEN IMAGED (05/08/2024 9:00 AM CDT) Case Report Gynecologic Cytology Report ? Case: [id number] ? Authorizing Provider: ??Margarita Melo PA-C ?Collected: ? 05/08/2024 0900 ? Ordering Location: ? [facility] ?Received: ?05/09/2024 1311 ? First Screen: ?Leelee, Alexander ? Pathologist: ? Fabrizio Bond Jr., ? MD ? Specimen: ?EXPORT FREIGHT CLERK ThinPrep Vial Screening, Cervical ? 05/18/2024 4:46 PM CDT [facility] INTERPRETATION/ RESULT LOW GRADE SQUAMOUS INTRAEPITHELIAL LESION (LSIL)(A) (none) 05/18/2024 4:46 PM CDT [facility] IMEN ADEQUACY Satisfactory for evaluation Endocervical component present 05/18/2024 4:[address] [facility] HPV REQUEST HPV and PAP 05/18/2024 4:[address] [facility] Date of LMP 04/16/2024 05/18/2024 4:[address] [facility] Last Pap Date 11/25/2022 05/18/2024 4:46 PM CDT [facility] Last Pap Result LSIL 4:46 PM CDT [facility] Additional Information 05/18/2024 4:[address] [facility] Comment: Interpreted at [facility] - [address] [facility] [address], [place] [address] Automated Review Successful 05/18/2024 4:46 PM CDT [facility] Comment:Specimen processed s uccessfully by automated rn recruitment device, ThinPrep Imaging System, [employer] ANCILLARY TESTING EXPORT FREIGHT CLERK HPV Ordered, Please see separate report 05/18/2024 4:46 PM CDT [facility] Note The pap test is a screening technique, not a diagnostic procedure. It is used primarily to screen for squamous cancers and precursor lesions. Published studies have shown that it is subject to both false negative and false positive results. The pap test should not be used as the sole means to diagnose or exclude pre-malignant and malignant lesions. 05/18/2024 4:46 PM CDT [facility] Other (Cervical) 05/08/2024 9:00 AM CDT 05/09/2024 1:11 PM CDT Margarita Melo PA-C PATHOLOGY/CYTOLOGY [facility] [address] [place] [address], * HPV HIGH RISK (05/08/2024 9:00 AM CDT) TYPE 16 Negative Negative 05/10/2024 4:20 PM CDT [facility] TYPE 18 Negative Negative 05/10/2024 4:20 PM CDT [facility] OTHER HIGH RISK TYPES Negative Negative 05/10/2024 4:20 PM CDT [facility] Other (Cervical) 05/08/2024 9:00 AM CDT 05/09/2024 1:11 PM CDT Narrative [facility] - 05/10/2024 4:20 PM CDT HPV types 16, 18, 31, 33, 35, 39, 45, 51, 52, 56, 58, 59, 66 and 68 DNA were undetectable or below the pre-set threshold. Methodology: Aditya Sonia 4800 HPV Test Margarita Melo PA-C MICROBIOLOGY [facility] [address] [place] [address], [place] * ANTI HIV 1/2 (01/04/2017 3:09 PM CDT) HIV-1/HIV-2 ANTIBODY Non-Reacti ve Non-Reacti ve 01/04/2017 8:18 PM CDT [facility] Blood BLOOD SPECIMEN / Unknown Venipuncture / Unknown 01/04/2017 3:09 PM CDT 01/04/2017 3:09 PM CDT Narrative [facility] - 01/04/2017 8:18 PM CDT HIV-1 p24 and HIV-1/HIV-2 Ab not detected Zaira Hoover ADMINISTRATIVE MANAGER SEND OUTS [facility] [address] [place] [address], [place] from Last 3 Months or Most Recently Relevant to Health Maintenance Advance Directives * Full Code (Latest Code Status on File) Date Activated Date Inactivated Comments 04/10/2017 11:26 AM 04/10/2017 3:33 PM Care Teams Necktie Turner Relationship Specialty Start Date End Date Margarita Melo PA-C [address] [place] [address] PCP - General Emergency Medicine 06/02/23
== END 2024-07-27 11:28 | disposition home or self-care (01) ==
LOC: LKVREF 11:30
PROVIDERS: PCP Physician Assistant Medical; Visit Provider Nurse Practitioner Family
DX: Z01.818 Encounter for other preprocedural examination (principal); R53.83 Other fatigue
CPT/HCPCS: 80053; 87086

== ENCOUNTER 2024-09-12 13:54 | Outpatient (CLI) | payer BC, SELFPAY | END 2024-09-12 13:55 | disposition home or self-care (01) | LOC: NFLDREF 09-13 10:41 | PROVIDERS: PCP Physician Assistant Medical; Referring Provider Physician Assistant Medical; Visit Provider Physician Assistant Medical | DX: R79.89 Other specified abnormal findings of blood chemistry (principal); V86.99XA Unspecified occupant of other special all-terrain or other off-road motor vehicle injured in nontraffic accident, initial encounter | CPT/HCPCS: 80053 ==

== ENCOUNTER 2025-02-06 09:05 | Outpatient (CLI) | payer BC, SELFPAY ==
--- NOTE | 2025-02-06 09:15 | CRLHL7_ITS ---
For Patients: As a result of the Century Cures Act, medical imaging exams and procedure reports are released immediately into your electronic medical record. You may view this report before your referring provider. If you have questions, please contact your health care provider. INDICATION: BILATERAL SCREENING MAMMOGRAM, ASYMPTOMATIC 34 Y/O FEMALE COMPARISON: 03/04/23, 01/14/16 TECHNIQUE: CC and MLO views were obtained. These mammographic images have been obtained using full-field digital technique. These mammographic images were interpreted with the benefit of computer aided detection and tomosynthesis. BREAST COMPOSITION: The breasts are extremely dense, which lowers the sensitivity of mammography. FINDINGS: No suspicious findings. ASSESSMENT: BI-RADS 1 Negative RECOMMENDATION: Annual screening mammogram. A lay language report of this examination will be provided to the patient. Dictated by: Rafiq Marroquin MD @ 02/06/2025 11:00:32 (Electronically Signed)
== END 2025-02-06 09:06 | disposition home or self-care (01) ==
LOC: MAMMO 09:05
PROVIDERS: PCP Physician Assistant Medical; Visit Provider Physician Assistant Medical
DX: Z12.31 Encounter for screening mammogram for malignant neoplasm of breast (principal); R92.333 Mammographic heterogeneous density, bilateral breasts
CPT/HCPCS: 77063; 77067

== ENCOUNTER 2025-06-11 08:12 | Outpatient (CLI) | payer BC, SELFPAY ==
[2025-06-11 15:14] LABS: Chlamydia DNA Amplified* NOT DETECTED (No Detected); GC DNA Amplified* NOT DETECTED (No Detected)
[2025-06-13 01:55] LABS: HPV Source Cervix
[2025-06-14 09:38] LABS: Pap Test Digital Imaging Done
== END 2025-06-11 08:13 | disposition home or self-care (01) ==
PROVIDERS: PCP Physician Assistant Medical; Visit Provider Physician Assistant Medical
DX: Z00.00 Encounter for general adult medical examination without abnormal findings (principal); R53.83 Other fatigue
CPT/HCPCS: 80053; 80061; 82306; 84443; 87491; 87591; 87624; 87625; 88141; 88142; 88175

== ENCOUNTER 2025-07-10 07:56 | Outpatient (CLI) | payer BC, SELFPAY ==
--- NOTE | 2025-07-10 08:00 | MR_ITS ---
Patient: HEDY ISLAS Facility:?[facility] Patient ID:?[id number] Site Patient ID:?[id number]. Site :?[id number] Study:?MRI-Breast Bilateral W/WO 15 CC DOTAREM-07/10/2025 9:58:44 AM Ordering Physician:Ana Avila Final Report: BILATERAL BREAST MRI WITHOUT AND WITH GADOLINIUM CLINICAL HISTORY: 35-year-old at elevated risk of breast carcinoma due to family history of mother diagnosed with breast cancer at age 42, as well as maternal grandmother with ovarian cancer. Patient also has dense breast tissue. INDICATION FOR BREAST MRI: Screening breast MRI in this high-risk woman. COMPARISON STUDIES: No prior MRIs. Mammogram 02/06/2025, 03/04/2023. CONTRAST: 15 cc Dotarem. TECHNIQUE: The patient was positioned prone using a breast coil. Multiple imaging sequences were obtained using 1-1.5 mm thick slices with no gap. The image sequences include T2-weighted STIR in the axial plane, T1-weighted nonfat-saturated gradient echo in the axial plane, pre- and post-contrast T1-weighted FLASH 3D with fat suppression in the axial plane, and T1-weighted FLASH high resolution 3D with fat suppression in the sagittal plane. Image post-processing was performed on a [employer] workstation. Complex 3D rendering including maximum intensity projections (MIPS) and volumetric renderings were obtained to optimize visualization of the extent of pathology and relationship to the nipple, skin, and chest wall. This aids in determining feasibility of breast conservation surgery. Subtraction, multiplanar reconstruction, mean curve determination, and angiogenesis mapping were also performed. The study was technically adequate. FINDINGS: Amount of Fibroglandular Tissue: Heterogeneous fibroglandular tissue. Breast Background Enhancement: Moderate. RIGHT Breast: No suspicious mass or non-mass enhancement. LEFT Breast: No suspicious mass or non-mass enhancement. Lymph Nodes: The mid and superior axillary regions are not included in the field of view. Lower BILATERAL axillary lymph nodes appear within normal limits. No internal mammary lymphadenopathy. IMPRESSIONS AND RECOMMENDATIONS: 1. No MRI evidence of malignancy in either breast. 2. The mid and superior axillary regions are not included in the [id number], increasing significance of clinical examination in this patient. 3. Annual screening mammography is recommended. If clinically indicated, continued screening breast MRI may also be performed, staggered at six-month intervals with screening mammography. BI-RADS Category 1: Negative Dictated by Jess Momin MD @ 07/11/2025 8:40:25 AM /Dictated by: Jess Momin MD @ 07/11/2025 8:40:00 AM (Electronic Signature)
== END 2025-07-10 07:57 | disposition home or self-care (01) ==
PROVIDERS: PCP Physician Assistant Medical; Visit Provider Physician Assistant Medical
DX: Z13.29 Encounter for screening for other suspected endocrine disorder (principal); Z80.3 Family history of malignant neoplasm of breast; Z91.89 Other specified personal risk factors, not elsewhere classified
CPT/HCPCS: 77049; A9575